=== PATIENT | male | born 1970 | race Caucasian/White ===

== ENCOUNTER 2021-06-21 06:47 | Day surgery (SDC) | payer BC, OTHER ==
[~2021-06-21 06:47] MED LIST: Lactated Ringers 1,000 ML IV SCH; Lidocaine 1%/Sod Bicarbonate in NS 8.4% 1 ML Syringe IDERM PRN; Sodium Chloride 0.9% 10 ML Syringe FLUSH PRN
[2021-06-21] MEDS ORDERED: Rocuronium 50 MG/5 ML Vial ONE ×2 (07:13→09:36)
[2021-06-21] MEDS ORDERED: Lidocaine 1% 4 ML ONE (07:13)
[2021-06-21] MEDS ORDERED: Propofol 200 MG/20 ML SDV ONE (07:13)
[2021-06-21] MEDS ORDERED: Ondansetron 4 MG/2 ML SDV ONE (07:13)
[2021-06-21] MEDS ORDERED: fentaNYL 250 MCG/5 ML SDV ONE (07:14)
[2021-06-21] MEDS ORDERED: Midazolam 1 MG/ML 2 ML SDV ONE (07:14)
[2021-06-21] MEDS ORDERED: EPINEPHrine 1 MG/ML SDV ONE (07:15)
[2021-06-21] MEDS ORDERED: Bupivacaine 0.5% 30 ML SDV ONE ×2 (07:15→09:20)
--- NOTE | 2021-06-21 07:36 | PCM.PREANE ---
Preanesthetic Assessment - Procedure Proposed Procedure: lap hernia repair with mesh - Anesthesia/Transfusion/Family Hx Anesthesia History: Prior Anesthesia Without Reaction Family History of Anesthesia Reaction: No Transfusion History: No Prior Transfusion(s) - Review of Systems General: No Symptoms Pulmonary: No Symptoms Cardiovascular: No Symptoms Gastrointestinal: Abdominal Pain (since aug - trying to figure that out) Neurological: No Symptoms Other: Reports: Easy Bruising, Diabetes, Liver Problems (cirrhosis- don't know why) - Physical Assessment NPO Status Date: 06/20/21 NPO Status Time: 22:00 Vital Signs: 97.8 18 99% 91 132/82 Height: 5 ft 8 in Weight: 95 kg ASA Class: 2 Mental Status: Alert & Oriented x3 Airway Class: Mallampati = 1 Dentition: Reports: Normal Dentition Thyro-Mental Finger Breadths: 3 Mouth Opening Finger Breadths: 3 ROM/Head Extension: Full Lungs: Clear to Auscultation, Normal Respiratory Effort Cardiovascular: Regular Rate, Regular Rhythm - Allergies Allergies/Adverse Reactions: Allergies Allergy/AdvReac Type Severity Reaction Status Date / Time contact metal agent Allergy Cannot Verified 06/18/21 13:56 Remember lisinopril Allergy Cannot Verified 06/18/21 13:56 Remember nut - unspecified Allergy Cannot Verified 06/18/21 13:56 Remember Penicillins Allergy Cannot Verified 06/18/21 13:56 Remember - Blood Blood Available: No - Acknowledgements Anesthesia Type Planned: General Anesthesia Pt an Appropriate Candidate for the Planned Anesthesia: Yes Alternatives and Risks of Anesthesia Discussed w Pt/Guardian: Yes Pt/Guardian Understands and Agrees with Anesthesia Plan: Yes PreAnesthesia Questionnaire Cardiovascular History: Reports: High Cholesterol, Hypertension Respiratory History: Reports: None Gastrointestinal History: Reports: Other (See Below) (fatty liver) Genitourinary History: Reports: Renal Calculus Musculoskeletal History: Reports: None Neurological History: Reports: Neuropathy, Diabetic Endocrine/Metabolic History: Reports: Obesity/BMI 30+ - Past Surgical History HEENT Surgical History: Reports: Tonsillectomy GI Surgical History: Reports: Appendectomy, Cholecystectomy, Colonoscopy, EGD Musculoskeletal Surgical History: Reports: Carpal Tunnel, Other (See Below) (bunion) - SUBSTANCE USE Tobacco Use Status *Q: Current Every Day Tobacco User Tobacco Use Within Last Twelve Months: Cigarettes Second Hand Smoke Exposure: Yes Days Per Week of Alcohol Use: 0 Recreational Drug Use History: No - HOME MEDS Home Medications: Home Meds Losartan/Hydrochlorothiazide [Losartan-HCTZ 50-12.5 MG] 1 tab PO DAILY 06/18/21 [History] Magnesium Oxide [Magnesium] 400 mg PO DAILY 06/18/21 [History] Mupirocin Calcium [Bactroban] 1 dose TOP TID 06/18/21 [History] Pioglitazone [Actos] 30 mg PO DAILY 06/18/21 [History] Simvastatin [Zocor] 40 mg PO DAILY 06/18/21 [History] Tamsulosin [Flomax] 0.4 mg PO DAILY 06/18/21 [History] buPROPion HCL [Bupropion HCl Sr] 200 mg PO DAILY 06/18/21 [History] glipiZIDE [Glipizide ER] 5 mg PO DAILY 06/18/21 [History] metFORMIN HCl [Metformin HCl] 1,000 mg PO BID 06/18/21 [History] - CURRENT (IN HOUSE) MEDS Current Meds: Current Medications Lactated Ringer's (Ringers, Lactated) 1,000 mls @ 125 mls/hr IV ASDIRECTED DANN Stop: 06/21/21 23:00 Lidocaine/Sodium Bicarbonate (Lidocaine 1%/Sod Bicarbonate In Ns 8.4% 1 Ml Syringe) 0.25 ml IDERM ONETIME PRN PRN Reason: Prior to IV Start Stop: 06/21/21 23:00 Sodium Chloride (Sodium Chloride 0.9% 10 Ml Syringe) 10 ml FLUSH ASDIRECTED PRN PRN Reason: Keep Vein Open Stop: 06/21/21 23:00 Discontinued Medications Bupivacaine HCl (Bupivacaine 0.5% 30 Ml Sdv) Confirm Administered Dose 30 ml .ROUTE .STK-MED ONE Stop: 06/21/21 07:16 Epinephrine HCl (Epinephrine 1 Mg/Ml Sdv) Confirm Administered Dose 1 mg .ROUTE .STK-MED ONE Stop: 06/21/21 07:16 Fentanyl (Fentanyl 250 Mcg/5 Ml Sdv) Confirm Administered Dose 250 mcg .ROUTE .STK-MED ONE Stop: 06/21/21 07:15 Lidocaine HCl (Xylocaine-Mpf 1%) Confirm Administered Dose 4 mls @ as directed .ROUTE .STK-MED ONE Stop: 06/21/21 07:14 Midazolam HCl (Midazolam 1 Mg/Ml 2 Ml Sdv) Confirm Administered Dose 2 mg .ROUTE .STK-MED ONE Stop: 06/21/21 07:15 Ondansetron HCl (Ondansetron 4 Mg/2 Ml Sdv) Confirm Administered Dose 4 mg .ROUTE .STK-MED ONE Stop: 06/21/21 07:14 Propofol (Propofol 200 Mg/20 Ml Sdv) Confirm Administered Dose 200 mg .ROUTE .ST [employer]-MED ONE Stop: 06/21/21 07:14 Rocuronium [place] (Rocuronium 50 Mg/5 Ml Vial) Confirm Administered Dose 50 mg .ROUTE .STK-MED ONE Stop: 06/21/21 07:14
[2021-06-21] MEDS ORDERED: Clindamycin Phosphate in D5W 900 MG in Premix Bag 1 BAG IV ONE ×2 (08:45)
[2021-06-21] MEDS ORDERED: fentaNYL 100 MCG/2 ML SDV IVPUSH PRN (08:48)
[2021-06-21] MEDS ORDERED: HYDROmorphone 0.5 MG/0.5 ML Syringe IVPUSH PRN (08:48)
[2021-06-21] MEDS ORDERED: Ondansetron 4 MG/2 ML SDV IVPUSH PRN (08:48)
[2021-06-21] MEDS ORDERED: Lactated Ringers 1,000 ML ONE (08:58)
[2021-06-21] MEDS ORDERED: HYDROmorphone 0.5 MG/0.5 ML Syringe ONE (09:38)
[2021-06-21] MEDS ORDERED: fentaNYL 100 MCG/2 ML SDV ONE (10:06)
--- NOTE | 2021-06-21 10:47 | PCM.POSTAN ---
POST ANESTHESIA ASSESSMENT - MENTAL STATUS Mental Status: Alert, Oriented - VITAL SIGNS Vital Signs: 1039 115/69 100 17 98.6 92% - RESPIRATORY Respiratory Status: Respiratory Rate WNL, Airway Patent, O2 Saturation Stable, Supplemental Oxygen - CARDIOVASCULAR CV Status: Pulse Rate WNL, Blood Pressure Stable - GASTROINTESTINAL GI Status: No Symptoms - PAIN Pain Score: 0 - POST OP HYDRATION Hydration Status: Adequate & Stable
[2021-06-21] MEDS ORDERED: Acetaminophen/HYDROcodone 325-5 MG Tab PO PRN (12:20)
--- NOTE | 2021-06-21 12:22 | PCM48HPAN ---
Post Anesthesia Note - EVALUATION WITHIN 48HRS OF ANESTHETIC Vital Signs in Normal Range: Yes Patient Participated in Evaluation: Yes Respiratory Function Stable: Yes Airway Patent: Yes Cardiovascular Function Stable: Yes Hydration Status Stable: Yes Pain Control Satisfactory: Yes (has some pain- nurse will give po pain meds) Nausea and Vomiting Control Satisfactory: Yes Mental Status Recovered: Yes Vital Signs: Last Vital Signs Temp 98.6 F 06/21/21 10:38 Pulse 91 06/21/21 07:10 Resp 11 L 06/21/21 11:15 BP 121/70 06/21/21 11:15 Pulse Ox 97 06/21/21 11:15
--- NOTE | 2021-06-21 13:14 | OR ---
DATE OF OPERATION: 06/21/2021 SURGEON: Montrell Cifuentes MD PREOPERATIVE DIAGNOSIS: Symptomatic umbilical hernia that is incarcerated but not strangulated. POSTOPERATIVE DIAGNOSIS: Symptomatic umbilical hernia that is incarcerated but not strangulated. OPERATION PERFORMED: Laparoscopic umbilical hernia repair with mesh. ANESTHESIA: General anesthesia plus local consisting of 0.5% Marcaine with epinephrine. BUSINESS OFFICE TECHNICIAN: Abbi Cast CNP. ESTIMATED BLOOD LOSS: 50 mL. COMPLICATIONS: None. MESH: 11.[address] circular mesh. Need for Skilled Truck Sales Representative: Skilled assistance of our nurse practitioner Abbi Cast CNP was needed in this procedure. She assisted with patient positioning, holding the laparoscopic camera and retractors and incision closure at the end of the procedure. INDICATION AND CONSENT: Mr. Green is a 51-year-old male with compensated cirrhosis and type 2 diabetes, who has been having umbilical hernia for several years. However, in the past few months, he has had pain at the umbilicus and inability to reduce the hernia. Because of this, he presented to my clinic and I recommended we go ahead and repair this, and due to his diabetes and cirrhosis, I recommended a laparoscopic approach. We discussed risks, benefits, and alternatives, and informed consent was obtained. DESCRIPTION OF PROCEDURE: The patient was taken to the operating room, placed in supine position and padded appropriately. Antibiotics consisting of clindamycin were provided due to his penicillin allergy, and the patient's abdomen was clipped of hair and prepped and draped in the usual sterile fashion. A formal time-out was performed prior to the start of the procedure. We began the procedure by injecting local anesthesia in the left upper quadrant, making a small incision and placing a Veress needle into the abdomen and then insufflating the abdomen to 15 mmHg. Then, a 5 mm trocar was placed in the left upper lateral abdomen under visualization of laparoscope. Abdomen was entered and Veress needle area was inspected and seemed to go through the omentum, but no intraabdominal injuries. This was removed. Then, 2 additional 5 mm trocars were placed in the left lateral abdomen. There was clearly incarcerated omentum within the umbilical hernia. The abdomen was inspected. The liver appeared to be cirrhotic. There were congestion of veins within the omentum that were noted. Then, we began taking the incarcerated omentum out of the hernia and this was slowly removed. There was significant venous bleeding that was controlled with cautery during this process. Eventually, the entire hernia was removed using blunt dissection as well as small amount of electrosurgery. Once the omentum was reduced back into the abdomen, the hernia defect was measured and found to be 2 cm in diameter. We again inspected the abdomen and controlled all the bleeding points. Once this was done, then 0 PDS suture was placed transversely through the skin so that we can close the defect. There were 2 stitches in a [id number] fashion. Once this was done, dual quoted 11.[address] mesh was opened. It was appropriately marked. 2-0 Prolene stitches were placed in 4 quadrants. Then, another 5 mm trocar was placed on the right lateral abdomen and a grasper was placed from the right lateral abdomen trocar to one of the left-sided trocar. The left trocar was removed and the mesh was inserted into the abdomen through a 5 mm trocar opening. Once this was done, then the abdominal wall was marked appropriately so that mesh was illustrated on the abdominal wall. Areas for anchoring the mesh were marked. Then, the abdomen was desufflated to 8 mmHg. Once this was done, the stay stitches were brought out transfascially through the prior marked areas of the skin so that the mesh laid flat against the abdominal wall. Then, SorbaFix tacker was used to place tacks around the mesh making a double crown configuration. Once this was done, the mesh was lying flat against the abdominal wall. Of note, prior to placement of the mesh, the hernia defect was closed as mentioned above with 0 PDS stitches. Once the mesh was placed and appeared to be lying flat and well against the abdominal wall, the abdomen was again inspected. There were no other injuries. The abdomen was desufflated and 4 skin trocar sites were closed at skin level with 4-0 Monocryl followed by Dermabond. This marked the end of the procedure. The patient was awoken from the procedure and taken to the PACU for recovery. The patient will be allowed to return home today and follow up in clinic in 2 weeks. MARIA L /[id number] STEPH
== END 2021-06-21 14:10 | disposition home or self-care (01) ==
LOC: JD.SDS 06:47
PROVIDERS: ATTEND Surgery
DX: K42.0 Umbilical hernia with obstruction, without gangrene (principal); E11.9 Type 2 diabetes mellitus without complications; E78.5 Hyperlipidemia, unspecified; I10 Essential (primary) hypertension; F17.210 Nicotine dependence, cigarettes, uncomplicated; D12.3 Benign neoplasm of transverse colon; D12.4 Benign neoplasm of descending colon; K62.1 Rectal polyp; Z98.890 Other specified postprocedural states; Z90.49 Acquired absence of other specified parts of digestive tract; Z79.899 Other long term (current) drug therapy; Z79.84 Long term (current) use of oral hypoglycemic drugs; Z88.0 Allergy status to penicillin; Z91.010 Allergy to peanuts
CPT/HCPCS: 00790; 82947; 87641; A9270-GY; C1781; J0171; J1170; J2250; J2405; J2704; J2710; J3010; J3490; J7120

== ENCOUNTER 2021-06-22 19:26 | Emergency (ER) | payer OTHER ==
[2021-06-22] MEDS ORDERED: HYDROmorphone 1 MG/ML Syringe IVPUSH STA (20:03)
[2021-06-22] MEDS ORDERED: Ondansetron 4 MG/2 ML SDV IVPUSH ONE (20:03)
--- NOTE | 2021-06-22 20:12 | EDM.PDOC ---
ED HPI GENERAL MEDICAL PROBLEM - General Chief Complaint: Abdominal Pain Stated Complaint: POST HERNIA SURGERY/PAIN Time Seen by Provider: 06/22/21 19:38 Source of Information: Reports: Patient, Family () History Limitations: Reports: No Limitations - History of Present Illness INITIAL COMMENTS - FREE TEXT/NARRATIVE: Mr. Green is a very pleasant 51-year-old gentleman who now presents to the emergency department with generalized abdominal pain. He states that he underwent a laparoscopic umbilical herniorrhaphy yesterday, 06/21/2021. He was discharged home the same day with prescriptions for [place] 5/325, 1 tab po Q6 hrs #12, with his most recent dose at 13:15 this afternoon, and MiraLAX. He has also been taking ibuprofen, with his most recent dose at 17:00 this afternoon. He states that he had generalized abdominal pain before he was discharged home yesterday, but that it got worse last night. He states that the pain is sharp- jareth in character. It does not radiate to his back. It is made worse with movement, particularly trying to sit up to get out of bed. He also reports feeling somewhat nauseated, although he has not had any emesis. He has had flatus. He also reports difficulty in urinating with decreased urine output today. The patient has not contacted the office of his Surgeon. Here in the ED, the patient's initial BP was found to be most elevated at 159/87, otherwise, his vitals were stable, he is afebrile, saturating 95% on room air. He appears to be relatively comfortable, in no acute distress. Prior to yesterday, the patient denies having a recent fever, chills, sore throat, ear pain, nasal or sinus congestion, cough, dyspnea, chest pain, palpitations, nausea, vomiting, constipation, diarrhea, abdominal pain, urinary symptoms, recent weight gain or weight loss, recent bloody bowel movements or black bowel movements, recent joint aches, headaches, or rashes. The patient's PCP is Dr. Albaro Richter. His Surgeon is Dr. Montrell Cifuentes. His gastroenterology midlevel is Juliet Meredith NP. He has received 2 COVID vaccinations plus an influenza vaccination this season. Bilateral Lower Abdomen Pain Score (Numeric/FACES): 9 - Related Data Allergies Allergy/AdvReac Type Severity Reaction Status Date / Time contact metal agent Allergy Severe Cannot Verified 06/22/21 19:49 Remember lisinopril Allergy Severe Cannot Verified 06/22/21 19:49 Remember nut - unspecified Allergy Severe Cannot Verified 06/22/21 19:49 Remember Penicillins Allergy Severe Cannot Verified 06/22/21 19:49 Remember Home Meds: Home Meds Losartan/Hydrochlorothiazide [Losartan-HCTZ 50-12.5 MG] 1 tab PO DAILY 06/18/21 [History] Magnesium Oxide [Magnesium] 400 mg PO DAILY 06/18/21 [History] Mupirocin Calcium [Bactroban] 1 dose TOP TID 06/18/21 [History] Pioglitazone [Actos] 30 mg PO DAILY 06/18/21 [History] Simvastatin [Zocor] 40 mg PO DAILY 06/18/21 [History] Tamsulosin [Flomax] 0.4 mg PO DAILY 06/18/21 [History] buPROPion HCL [Bupropion HCl Sr] 200 mg PO DAILY 06/18/21 [History] glipiZIDE [Glipizide ER] 5 mg PO DAILY 06/18/21 [History] metFORMIN HCl [Metformin HCl] 1,000 mg PO BID 06/18/21 [History] Hydrocodone/Acetaminophen [HYDROcodone-Acetaminophen 5-325 MG] 1 each PO Q6H PRN #12 tab 06/21/21 [Rx] polyethylene glycoL 3350 [MiraLAX] 17 gm PO BEDTIME #14 packet 06/21/21 [Rx] Past Medical History Cardiovascular History: Reports: High Cholesterol, Hypertension Gastrointestinal History: Reports: Cirrhosis (non-alcoholic), Colon Polyp, Fatty Liver (Non-Alcoholic Fatty Liver Disease (NAFLD)) Genitourinary History: Reports: Renal Calculus Neurological History: Reports: Neuropathy, Diabetic Endocrine/Metabolic History: Reports: Diabetes, Type II, Obesity/BMI 30+ - Past Surgical History HEENT Surgical History: Reports: LASIK (bilateral), Tonsillectomy GI Surgical History: Reports: Appendectomy, Cholecystectomy (2007), Colonoscopy (x 2), EGD (x 1), Hernia, Abdominal (Laparoscopic umbilical 06/21/2021) Musculoskeletal Surgical History: Reports: Carpal Tunnel (bilateral), Other (See Below) (Right bunionectomy) Social & Family History - Tobacco Use Tobacco Use Status *Q: Current Every Day Tobacco User Years of Tobacco use: 30 Packs/Tins Daily: 0.5 Packs/Tins Daily Comment: Down from 1 ppd Tobacco Use Comment: Started smoking 1990 - Caffeine Use Caffeine Use: Reports: Coffee - Alcohol Use Alcohol Use History: No - Recreational Drug Use Recreational Drug Use: No - Living Situation & Occupation Living situation: Reports: , with Spouse, with Family (3 kids) Occupation: Employed (DJ) ED ROS GENERAL - Review of Systems Review Of Systems: Comprehensive ROS is negative, except as noted in HPI. ED EXAM, GI/ABD - Physical Exam Exam: See Below Exam Limited By: No Limitations General Appearance: Alert, WD/WN, No Apparent Distress Eyes: Bilateral: Normal Appearance, EOMI Ears: Normal External Exam, Hearing Grossly Normal Nose: Normal Inspection Throat/Mouth: Normal Inspection, Normal Lips, Normal Voice, No Airway Compromise Head: Atraumatic, Normocephalic Neck: Normal Inspection, Full Range of Motion Respiratory/Chest: No Respiratory Distress, Lungs Clear, Normal Breath Sounds, No Accessory Muscle Use Cardiovascular: Normal Peripheral Pulses, Regular Rate, Rhythm, No Edema, No Gallop, No JVD, No Murmur, No Rub GI/Abdominal Exam: Normal Bowel Sounds, Soft, No Organomegaly, No Abnormal Bruit, No Mass, Distended (mild), Tender (Considerable, generalized, non-focal) Back Exam: Normal Inspection, Full Range of Motion. No: CVA Tenderness (L), CVA Tenderness (R) Extremities: Normal Inspection, Normal Range of Motion, No Pedal Edema, Normal Capillary Refill Neurological: Alert, Oriented, Normal Cognition, No Motor/Sensory Deficits Psychiatric: Normal Affect Skin Exam: Warm, Dry, Intact, Normal Color, No Rash Course - Vital Signs Last Recorded V/S: Last Vital Signs Temp 36.8 C 06/22/21 19:44 Pulse 94 06/22/21 19:44 Resp 16 06/22/21 19:44 BP 159/87 H 06/22/21 19:44 Pulse Ox 95 06/22/21 19:44 - Orders/Labs/Meds Orders: Active Orders 24 hr Category Date Time Status Bladder Scan [RC] ASDIRECTED Care 06/22/21 19:52 Active Abdomen Pelvis w Cont [CT] Stat Exams 06/22/21 20:03 Taken HYDROmorphone [Dilaudid] Med 06/22/21 23:24 Once 0.5 mg IVPUSH ONETIME ONE Sodium Chloride 0.9% [Normal Saline] 1,000 ml Med 06/22/21 20:15 Active IV ASDIRECTED Medication Orders Hydromorphone HCl (Hydromorphone 0.5 Mg/0.5 Ml Syringe) 0.5 mg IVPUSH ONETIME ONE Stop: 06/22/21 23:25 Sodium Chloride (Normal Saline) 1,000 mls @ 150 mls/hr IV ASDIRECTED DANN Last Admin: 06/22/21 20:24 Dose: 150 mls/hr Documented by: REAGAN Labs: Laboratory Tests 06/22/21 06/22/21 06/22/21 Range/Units 20:25 20:25 20:25 WBC 9.56 H (4.23-9.07) K/mm3 RBC 4.19 L (4.63-6.08) M/mm3 Hgb 13.5 L (13.7-17.5) gm/dl Hct 41.0 (40.1-51.0) % MCV 97.9 H (79.0-92.2) fl MCH 32.2 (25.7-32.2) pg MCHC 32.9 (32.2-35.5) g/dl RDW Std Deviation 51.2 H (35.1-43.9) fL Plt Count 94 L (163-337) K/mm3 MPV 12.0 (9.4-12.3) fl Neutrophils % (Manual) 76 H (40-60) % Band Neutrophils % 0 (0-10) % Lymphocytes % (Manual) 14 L (20-40) % Atypical Lymphs % 0 % Monocytes % (Manual) 10 (2-10) % Eosinophils % (Manual) 0 L (0.8-7.0) % Basophils % (Manual) 0 L (0.2-1.2) Platelet Estimate Decreased Plt Morphology Comment See note RBC Morph Comment Normal Sodium 137 (136-145) mEq/L Potassium 4.3 (3.5-5.1) mEq/L Chloride 101 (98-107) mEq/L Carbon Dioxide 30 (21-32) mEq/L Anion Gap 10.3 (5-15) BUN 8 (7-18) mg/dL Creatinine 0.8 (0.7-1.3) mg/dL Est Cr Clr Drug Dosing 106.88 mL/min Estimated GFR (MDRD) > 60 (>60) mL/min BUN/Creatinine Ratio 10.0 L (14-18) Glucose 150 H (70-99) mg/dL Calcium 8.8 (8.5-10.1) mg/dL Total Bilirubin 1.4 H (0.2-1.0) mg/dL AST 59 H (15-37) U/L ALT 50 (16-63) U/L Alkaline Phosphatase 102 (46-116) U/L Total Protein 7.7 (6.4-8.2) g/dl Albumin 3.2 L (3.4-5.0) g/dl Globulin 4.5 gm/dL Albumin/Globulin Ratio 0.7 L (1-2) Lipase 99 (73-393) U/L Urine Color [place] H (Yellow) Urine Appearance Clear (Clear) Urine pH 6.0 (5.0-8.0) Ur Specific [place] > or = 1.030 (1.005-1.030) Urine Protein 1+ H (Negative) Urine Glucose (UA) Negative (Negative) Urine Ketones Negative (Negative) Urine Occult Blood Negative (Negative) Urine Nitrite Positive H (Negative) Urine Bilirubin 1+ H (Negative) Urine Urobilinogen 0.2 (0.2-1.0) Ur Leukocyte Esterase Negative (Negative) Urine RBC 0-5 (0-5) /hpf Urine WBC 0-5 (0-5) /hpf Ur Squamous Epith Cells 0-5 (0-5) /hpf Urine Bacteria Occasional (FEW) /hpf Urine Mucus Few (FEW) /hpf Meds: Medications Generic Name Dose Route Start Last Admin Trade Name Freq PRN Reason Stop Dose Admin Hydromorphone HCl 0.5 mg 06/22/21 23:24 Hydromorphone 0.5 Mg/0.5 Ml Syringe IVPUSH 06/22/21 23:25 ONETIME ONE Sodium Chloride 1,000 mls @ 150 mls/hr 06/22/21 20:15 06/22/21 20:24 Normal Saline IV 150 mls/hr ASDIRECTED DANN Administration Discontinued Medications Generic Name Dose Route Start Last Admin Trade Name Freq PRN Reason Stop Dose Admin Diatrizoate Meglum/Diatrizoate Sod 60 ml 06/22/21 20:30 06/22/21 20:42 Diatrizoate Meglumine/Diatrizoate Sodium 37% 120 Ml Bottle PO 06/22/21 20:31 1 bottle ONETIME ONE Administration Hydromorphone HCl 0.5 mg 06/22/21 20:03 06/22/21 20:24 Hydromorphone 1 Mg/Ml Syringe IVPUSH 06/22/21 20:04 0.5 mg ONETIME STA Administration Iopamidol 100 ml 06/22/21 20:15 06/22/21 20:29 Iopamidol 612 Mg/Ml 100 Ml Bottle IVPUSH 06/22/21 20:16 100 ml ONETIME ONE Administration Iopamidol 50 ml 06/22/21 20:15 06/22/21 22:19 Iopamidol 612 Mg/Ml 50 Ml Sdv IVPUSH 06/22/21 20:16 25 ml ONETIME ONE Administration Ondansetron HCl 4 mg 06/22/21 20:03 06/22/21 20:24 Ondansetron 4 Mg/2 Ml Sdv IVPUSH 06/22/21 20:04 4 mg ONETIME ONE Administration - Re-Assessments/Exams Free Text/Narrative Re-Assessment/Exam: 06/22/21 20:05 The patient has active bowel sounds, although his abdomen is quite tender all over. I have ordered a work-up that includes several blood tests, a urinalysis, and a CT of the abdomen and pelvis with oral and IV contrast. The patient is to urinate as much as possible when he provides the urine sample, and we will check a post-void residual bladder scan. In the meantime, he will be given IV Dilaudid, IV Zofran, and IV fluid. 06/22/21 20:39 Notified by Aleisha CAMPBELL that the post-void bladder scan revealed no retained urine. 06/22/21 21:29 The patient's CBC is remarkable for mild leukocytosis of 9.56, but with 0% bandemia. His Hgb is slightly depressed at 13.5, with a Hct within normal limits at 41.0, and thrombocytopenia of 94,000. His CMP is remarkable for hyperglycemia of 150, a TBil slightly elevated at 1.4, and an AST slightly elevated at 59, with an ALT within normal limits at 50, and the remainder of his CMP being unremarkable. His lipase level is within normal limits at 99. His urinalysis is remarkable for occult blood negative with 0-5 RBCs, leukocyte esterase negative with 0-5 WBCs, nitrate positive with occasional bacteria, and 0-5 squamous epithelial cells. 06/22/21 23:04 CT of the abdomen and pelvis with oral and IV contrast is read by [facility] as: 1. Postoperative changes from umbilical herniorrhaphy. 2. Moderate amount of pneumoperitoneum in the upper abdomen. Not an unexpected finding following recent abdominal surgery. 3. Dilated proximal small bowel. Probably reflecting ileus. 4. Liver appears cirrhotic. 5. Spleen is enlarged, nearly 14 cm in length. 6. There are portosystemic collaterals. 06/22/21 23:25 Test results discussed with the patient and his . The patient requested additional pain medication. 06/22/21 23:[address] Cifuentes at 23:25. He feels that the patient is experiencing normal postoperative pain, and nothing different needs to be done. The patient can call his office in the morning to make an appointment to follow- up. 06/22/21 23:[address] Cifuentes discussed with the patient and his . I will discharge him home with the above recommendation. I recommended that he ambulate to help get his bowels moving. Departure - Departure Time of Disposition: 23:30 Disposition: Home, Self-Care 01 Condition: Good Clinical Impression: Postoperative abdominal pain - Discharge Information *PRESCRIPTION DRUG MONITORING PROGRAM REVIEWED*: Not Applicable *COPY OF PRESCRIPTION DRUG MONITORING REPORT IN PATIENT CHRISTINE: Not Applicable Referrals: Albaro Rizo MD [Primary Care Provider] - Montrell Cifuentes MD [Physician] - Juliet Meredith NP [Ordering Only Provider] - Forms: ED Department Discharge Additional Instructions: You were seen in the emergency room for generalized abdominal pain following a laparoscopic umbilical herniorrhaphy on 06/21/2021. Work-up in the ER included several blood tests, a urinalysis, a post-void bladder scan, and a CT of your abdomen and pelvis with oral and IV contrast. Your blood work found your blood sugar to be modestly elevated at 150. Your post-void bladder scan found no retained urine. The CT of your abdomen and pelvis found postoperative changes, but no other new findings. Your case was discussed with Dr. Cifuentes, who feels that you are experiencing normal postoperative abdominal pain. We recommend that you ambulate as much as possible, to help get your bowels moving. You may call Dr. Cifuentes's office first thing in the morning, to arrange to follow-up with him. If any other problems, please do not hesitate to return to the ER. Sepsis Event Note (ED) - Evaluation Sepsis Screening Result: No Definite Risk - Focused Exam Vital Signs: Vital Signs Temp Pulse Resp BP Pulse Ox 06/22/21 19:44 36.8 C 94 16 159/87 H 95 - My Orders Last 24 Hours: My Active Orders 06/22/21 19:52 Bladder Scan [RC] ASDIRECTED 06/22/21 20:03 Abdomen Pelvis w Cont [CT] Stat 06/22/21 20:15 Sodium Chloride 0.9% [Normal Saline] 1,000 ml IV ASDIRECTED 06/22/21 23:24 HYDROmorphone [Dilaudid] 0.5 mg IVPUSH ONETIME ONE - Assessment/Plan Last 24 Hours: My Active Orders 06/22/21 19:52 Bladder Scan [RC] ASDIRECTED 06/22/21 20:03 Abdomen Pelvis w Cont [CT] Stat 06/22/21 20:15 Sodium Chloride 0.9% [Normal Saline] 1,000 ml IV ASDIRECTED 06/22/21 23:24 HYDROmorphone [Dilaudid] 0.5 mg IVPUSH ONETIME ONE
[2021-06-22] MEDS ORDERED: Sodium Chloride 0.9% 1,000 ML IV SCH (20:15)
[2021-06-22] MEDS ORDERED: Iopamidol 612 MG/ML 100 ML Bottle IVPUSH ONE (20:15)
[2021-06-22] MEDS ORDERED: Iopamidol 612 MG/ML 50 ML SDV IVPUSH ONE (20:15)
[2021-06-22] MEDS ORDERED: Diatrizoate Meglumine/Diatrizoate Sodium 37% 120 ML Bottle PO ONE (20:30)
[2021-06-22] MEDS ORDERED: HYDROmorphone 0.5 MG/0.5 ML Syringe IVPUSH ONE (23:24)
--- NOTE | 2021-06-23 07:04 | CT ---
CT abdomen and pelvis Technique: Multiple axial sections were obtained from above the dome of the diaphragm inferiorly through the pubic symphysis. Intravenous and oral contrast were utilized. Delayed images were also obtained through the abdomen and pelvis. Reconstructed coronal and sagittal were also obtained. Comparison: No prior abdominal imaging is available. Findings: Small portion of the visualized lung bases show slight scarring and atelectasis on both sides. Liver shows diffuse nodular contour compatible with cirrhotic change. No definite focal abnormality is appreciated within the liver. Surgical clips are noted from prior cholecystectomy. Slight varicosities are noted. Very minimal ascites is seen next to the liver. Spleen is slightly enlarged with a length of 14.0 cm. Adrenal gland on the left side shows slight nodularity which is believed to be incidental. Right adrenal gland is within normal limits. Pancreas shows no discrete abnormality. Kidneys show symmetric contrast enhancement without hydronephrosis. Small cyst is noted within the mid right kidney measuring 7 mm. Delayed images show contrast within both ureters as well as within the bladder. Small bowel appears somewhat dilated but contrast is noted throughout the small bowel and into the cecum which is likely due to nonobstructing ileus. Abdominal aorta shows atherosclerotic calcification which continues into the iliac vessels. No aneurysm is seen. Scattered small retroperitoneal lymph nodes are seen most likely within normal limits. Soft tissue air is noted within the anterior abdominal wall and around the umbilicus compatible with previous surgery. No pelvic mass or adenopathy is seen. Small amount of free air is seen within the anterior abdomen presumably from prior surgery. Impression: 1. Soft tissue air compatible with postoperative changes within the anterior abdominal structures. Small amount of free air is seen likely relating to prior surgery. 2. Findings of cirrhosis within the liver as well as splenomegaly and mild varices. 3. Slightly dilated proximal small bowel most likely representing a nonobstructing mild ileus. Diagnostic code #3 I agree with preliminary report from [facility] finalized on 06/22/21, 11:56 PM CDT, code 1
== END 2021-06-23 00:09 | disposition home or self-care (01) ==
LOC: JD.ED 19:26
DX: G89.18 Other acute postprocedural pain (principal); R10.31 Right lower quadrant pain; R10.32 Left lower quadrant pain; D69.6 Thrombocytopenia, unspecified; E11.65 Type 2 diabetes mellitus with hyperglycemia; I10 Essential (primary) hypertension; E78.00 Pure hypercholesterolemia, unspecified; E11.40 Type 2 diabetes mellitus with diabetic neuropathy, unspecified; F17.210 Nicotine dependence, cigarettes, uncomplicated; E66.9 Obesity, unspecified; Z68.33 Body mass index [BMI] 33.0-33.9, adult; Z91.041 Radiographic dye allergy status; Z88.8 Allergy status to other drugs, medicaments and biological substances; Z91.018 Allergy to other foods; Z88.0 Allergy status to penicillin; Z79.84 Long term (current) use of oral hypoglycemic drugs; Z79.899 Other long term (current) drug therapy
CPT/HCPCS: 36415; 51798; 74177; 80053; 81001; 83690; 85007; 85027; 96374; 96375; 96376; 99284; J1170; J2405; J7030; Q9963; Q9967

== ENCOUNTER 2023-06-25 22:00 | Emergency (ER) | payer OTHER ==
[2023-06-25] MEDS ORDERED: Ketorolac 60 MG/2 ML SDV IM ONE (22:49)
[2023-06-25] MEDS ORDERED: oxyCODONE 5 MG Tab PO ONE (23:53)
== END 2023-06-26 00:11 | disposition home or self-care (01) ==
LOC: JD.ED 22:00
DX: S22.41XA Multiple fractures of ribs, right side, initial encounter for closed fracture (principal); E78.00 Pure hypercholesterolemia, unspecified; I10 Essential (primary) hypertension; E11.9 Type 2 diabetes mellitus without complications; E66.9 Obesity, unspecified; Z68.33 Body mass index [BMI] 33.0-33.9, adult; Z91.048 Other nonmedicinal substance allergy status; Z91.018 Allergy to other foods; Z88.0 Allergy status to penicillin; Z79.899 Other long term (current) drug therapy; W11.XXXA Fall on and from ladder, initial encounter
CPT/HCPCS: 96372; 99283; A9270; J1885

== ENCOUNTER 2023-07-21 13:22 | Emergency (ER) | payer OTHER | END 2023-07-21 17:58 | disposition home or self-care (01) | LOC: JD.ED 13:22 | DX: R07.81 Pleurodynia (principal); I10 Essential (primary) hypertension; K74.60 Unspecified cirrhosis of liver; E78.00 Pure hypercholesterolemia, unspecified; E11.9 Type 2 diabetes mellitus without complications; E66.9 Obesity, unspecified; F17.210 Nicotine dependence, cigarettes, uncomplicated; Z90.49 Acquired absence of other specified parts of digestive tract; Z79.84 Long term (current) use of oral hypoglycemic drugs; Z79.899 Other long term (current) drug therapy; Z88.0 Allergy status to penicillin; Z88.8 Allergy status to other drugs, medicaments and biological substances; Z91.048 Other nonmedicinal substance allergy status; Z91.018 Allergy to other foods; Z68.35 Body mass index [BMI] 35.0-35.9, adult | CPT/HCPCS: 71250; 71250-26; 99283; 99284 ==